=== PATIENT | female | born 2005 | race Caucasian/White ===

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

== ENCOUNTER 2025-02-21 16:36 | Emergency (ER) | payer OTHER ==
--- NOTE | 2025-02-21 17:24 | ED ---
Nausea/Vomiting/Diarrhea HPI - General Source: patient, RN notes reviewed Mode of arrival: ambulatory Limitations: no limitations <Neda Villarreal - Last Filed: 02/21/25 17:23> <Nasim Green - Last Filed: 03/17/25 14:38> - General Chief complaint: Nausea/Vomiting/Diarrhea Stated complaint: Cough Time Seen by Provider: 02/21/25 17:23 - History of Present Illness Initial comments: Quick [id number] female presenting for cough x 2 days with associated nasal congestion and ear pain. Also reports several episodes of nausea and vomiting. Denies fevers, abdominal pain. (Neda Villarreal) - Related Data Home Medications Medication Instructions Recorded Confirmed Cholecalciferol [Vitamin D3 (25 50 mcg PO DAILY 05/01/21 05/01/21 Mcg = 1000 Iu)] FLUoxetine HCL [Sarafem] 20 mg PO DAILY 05/01/21 05/01/21 Previous Rx's Medication Instructions Recorded Albuterol Inhaler [Ventolin Hfa 1 - 2 puff INHALATION Q6H PRN #1 09/26/24 Inhaler] each Ondansetron Odt [Zofran ODT] 4 mg PO Q8HR PRN #10 tab 02/21/25 Promethazine 6.25MG/5Ml [Phenergan 5 ml PO Q4HR PRN #120 ml 02/21/25 Syrup] Allergies Allergy/AdvReac Type Severity Reaction Status Date / Time No Known Allergies Allergy Verified 02/21/25 16:57 Review of Systems ROS Other: All systems not noted in ROS Statement are negative. <eNda Villarreal - Last Filed: 02/21/25 17:23> ROS Other: All systems not noted in ROS Statement are negative. <Nasim Green - Last Filed: 03/17/25 14:38> ROS Statement: Those systems with pertinent positive or pertinent negative responses have been documented in the HPI. Past Medical History Past Medical History: No Reported History History of Any Multi-Drug Resistant Organisms: None Reported Past Surgical History: No Surgical Hx Reported Additional Past Surgical History / Comment(s): left ovary cyst removal, Past Psychological History: Depression Smoking Status: Vaper Past Alcohol Use History: None Reported Past Drug Use History: None Reported <Neda Villarreal - Last Filed: 02/21/25 17:23> General Exam Limitations: no limitations <Neda Villarreal - Last Filed: 02/21/25 17:23> Limitations: no limitations General appearance: alert, in no apparent distress Head exam: Present: atraumatic, normocephalic Eye exam: Present: normal appearance. Absent: scleral icterus, conjunctival injection ENT exam: Present: normal oropharynx, mucous membranes moist, TM's normal bilaterally, normal external ear exam Neck exam: Present: normal inspection, full ROM Respiratory exam: Present: normal lung sounds bilaterally. Absent: respiratory distress, wheezes, rales, rhonchi, stridor, accessory muscle use Cardiovascular Exam: Present: regular rate, normal rhythm, normal heart sounds. Absent: systolic murmur, diastolic murmur, rubs, gallop GI/Abdominal exam: Present: soft. Absent: distended, tenderness, guarding, rebound, rigid, mass Extremities exam: Present: normal inspection, normal capillary refill. Absent: pedal edema, calf tenderness Back exam: Present: normal inspection. Absent: CVA tenderness (R), CVA tenderness (L) Neurological exam: Present: alert Skin exam: Present: warm, dry, intact, normal color. Absent: rash <Nasim Green - Last Filed: 03/17/25 14:38> - General Exam Comments Initial Comments: Visual Physical Exam Vital signs reviewed General: Well-appearing, nontoxic, no acute distress. Head: Normocephalic, atraumatic Eyes: PERRLA, EOMI ENT: Airway patent Chest: Nonlabored breathing Skin: No visual rash, normal skin tone Neuro: Alert and oriented 3 Musculoskeletal: No gross abnormalities (Neda Villarreal) Course Vital Signs 02/21/25 02/21/25 16:54 19:28 Temperature 98.1 F 98.7 F Pulse Rate 101 H 58 L Respiratory 22 18 Rate Blood Pressure 134/79 134/83 O2 Sat by Pulse 100 100 Oximetry Medical Decision Making <Neda Villarreal - Last Filed: 02/21/25 17:23> <Nasim Green - Last Filed: 03/17/25 14:38> - Medical Decision Making I completed the quick note portion of this chart signed Neda Villarreal PA-C (Neda Villarreal) Was pt. sent in by a medical professional or institution (Dr. PA, PAINTER [employer]ILRO[employer], urgent care, hospital, or [facility]...) When possible be specific @ -[No] Did you speak to anyone other than the patient for history (EMS, parent, family, police, friend...)? What history was obtained from this source @ -[No] Did you review nursing and triage notes (agree or disagree)? Why? @ -[I reviewed and agree with nursing and triage notes] Were old charts reviewed (outside hosp., previous admission, EMS record, old EKG, old radiological studies, urgent care reports/EKG's, [facility] records)? Report findings @ -[No old charts were reviewed] Differential Diagnosis (chest pain, altered mental status, abdominal pain women, abdominal pain men, vaginal bleeding, weakness, fever, dyspnea, syncope, headache, dizziness, GI bleed, back pain, seizure, CVA, palpatations, mental health, musculoskeletal)? @ -[Differential Pneumonia, viral URI, otitis, sinusitis, peritonsillar Abscess, retropharyngeal Abscess, this is not meant to be an all-inclusive list. EKG interpreted by me (3pts min.). @ -[As above] X-rays interpreted by me (1pt min.). @ -[None done] CT interpreted by me (1pt min.). @ -[None done] U/S interpreted by me (1pt. min.). @ -[None done] What testing was considered but not performed or refused? (CT, X-rays, U/S, labs)? Why? @ -[None] What meds were considered but not given or refused? Why? @ -[None] Did you discuss the management of the patient with other professionals (professionals i.e. , PA, PAINTER [employer]ILRO[employer], lab, RT, psych nurse, social insurance analyst, budget analyst, teacher, chief technical officer, outsole caser)? Give summary @ -[No] Was smoking cessation discussed for >3mins.? @ -[No] Was critical care preformed (if so, how long)? @ -[No] Were there social determinants of health that impacted care today? How? (Homelessness, low income, unemployed, alcoholism, drug addiction, transportation, low edu. Level, literacy, decrease access to med. care, [facility], rehab)? @ -[No] Was there de-escalation of care discussed even if they declined (Discuss DNR or withdrawal of care, Hospice)? DNR status @ -[No] What co-morbidities impacted this encounter? (DM, HTN, Smoking, COPD, CAD, Cancer, CVA, ARF, Chemo, Hep., AIDS, mental health diagnosis, sleep apnea, morbid obesity)? @ -[None] Was patient admitted / discharged? Hospital course, mention meds given and route, prescriptions, significant lab abnormalities, going to OR and other pertinent info. @ -Patient is a 19-year-old woman with upper respiratory symptoms, history and physical exam are consistent with viral syndrome. Discussed appropriate further care and follow-up as well as return parameters. Undiagnosed new problem with uncertain prognosis? @ -[No] Drug Therapy requiring intensive monitoring for toxicity (Heparin, Nitro, Insulin, Cardizem)? @ -[No] Were any procedures done? @ -[No] Diagnosis/symptom? @ -[Viral syndrome Acute, or Chronic, or Acute on Chronic? @ -[Acute Uncomplicated (without systemic symptoms) or Complicated (systemic symptoms)? @ -[Uncomplicated Side effects of treatment? @ -[No] Exacerbation, Progression, or Severe Exacerbation? @ -[No] Poses a threat to life or bodily function? How? (Chest pain, [place], [place], pneumonia, PE, COPD, DKA, ARF, appy, cholecystitis, CVA, Diverticulitis, Homicidal, Suicidal, threat to staff... and all critical care pts) @ -[No] All treatments are based on ideal body weight as in ED triage (Nasim Green) - Lab Data Lab Results 02/21/25 02/21/25 Range/Units 18:11 18:54 Urine HCG, Qual Not Detected (Not Detectd) Influenza Type A (PCR) Not Detected (Not Detectd) Influenza Type B (PCR) Not Detected (Not Detectd) RSV (PCR) Not Detected (Not Detectd) SARS-CoV-2 (PCR) Not Detected (Not Detectd) Disposition <Neda Villarreal - Last Filed: 02/21/25 17:23> Is patient prescribed a controlled substance at d/c from ED?: No <Nasim Green - Last Filed: 03/17/25 14:38> Clinical Impression: Viral syndrome Disposition: HOME SELF-CARE Condition: Good Instructions (If sedation given, give patient instructions): Viral Syndrome (ED) Prescriptions: Promethazine 6.25MG/5Ml [Phenergan Syrup] 5 ml PO Q4HR PRN #120 ml PRN Reason: Cough Ondansetron Odt [Zofran ODT] 4 mg PO Q8HR PRN #10 tab PRN Reason: Nausea Referrals: Jonathan Gonzalez MD [Primary Care Provider] - 1-2 days
--- NOTE | 2025-02-21 17:54 | XR ---
EXAMINATION TYPE: XR chest 2V DATE OF EXAM: 02/21/2025 5:41 PM COMPARISON: Chest radiographs from 09/26/2024 CLINICAL INDICATION: Female, 19 years old with history of Cough; TECHNIQUE: XR chest 2V Frontal and lateral views of the chest. FINDINGS: Lungs/Pleura: There is no evidence of pleural effusion, focal consolidation, or pneumothorax. Pulmonary vascularity: Unremarkable. Heart/mediastinum: Cardiomediastinal silhouette is unremarkable. Musculoskeletal: No acute osseous pathology. IMPRESSION: No acute cardiopulmonary disease/process. [facility], , 02/21/2025 5:52 PM
[2025-02-21] MEDS: ONDANSETRON ODT 4 MG TAB PO STA (18:33)
[2025-02-21 19:08] LABS: Influenza A Not Detected (Not Detectd); Influenza B Not Detected (Not Detectd); RSV Not Detected (Not Detectd)
[2025-02-21 19:29] VITALS: BP 134/83; PULSE 58; RESP 18; TEMP 98.7
== END 2025-02-21 19:29 | disposition home or self-care (01) ==
LOC: EC 16:36
DX: B34.9 Viral infection, unspecified (principal); F17.290 Nicotine dependence, other tobacco product, uncomplicated
CPT/HCPCS: 71046; 81025; 87636; 99284